=== PATIENT | male | born 1935 | race Two or more races ===

== ENCOUNTER 2017-02-14 06:49 | Day surgery (SDC) | payer OTHER, BC ==
[2017-02-14] VITALS (7 sets, daily range): BP systolic 121–148; BP diastolic 61–72
[~2017-02-14] VITALS: Ht 165.1 cm; Wt 59.0 kg
[~2017-02-14 06:49] MED LIST: CALPHRON667 MG PO; HYTRIN5 MG PO; LIPITOR20 MG PO; LOPRESSOR50 MG PO; NORVASC10 MG PO; NORVASC5 MG PO; PROCRIT3000 UNIT1 SC; ROCALTROL0.5 MCG PO; ZYLOPRIM100 MG PO
[2017-02-14 07:15] LABS: HEMATOCRIT 28.3 % (38.0-50.0); MCHC 33.2 G/DL (30.0-36.0); MCV 93.4 FL (86-99); MEAN PLAT.VOLUME 10.5 uM^3 (9.0-12.4); PLATELET COUNT 176 K/uL (156-360); RBC DIS.WIDTH-CV 12.8 % (11.8-14.6); RBC DIS.WIDTH-SD 43.4 % (39-53); RED BLOOD COUNT 3.03 M/uL (4.00-5.50); WHITE BLOOD COUNT 5.2 K/uL (4.1-10.2)
[2017-02-14 07:42] LABS: ANION GAP 6 MEQ/L (2-14); CHLORIDE 103 MEQ/L (99-109); GFR ESTIMATE (CALCULATED) 10 mL/min/; GLUCOSE 110 mg/dL (70-99); POTASSIUM 4.8 MEQ/L (3.7-5.4); SAMPLE HEMOLYSIS CHECK 0; SAMPLE ICTERIC CHECK 0; SAMPLE LIPEMIA CHECK 0; SODIUM 136 MEQ/L (136-147); UREA NITROGEN (BUN) 58 mg/dL (9-23)
[2017-02-14] MEDS ORDERED: NORCO 5/3251 TABLET PO (10:45)
[2017-02-15 04:16] VITALS: BP 130/65
[2017-02-15 08:10] VITALS: BP 142/68
== END 2017-02-15 10:35 | disposition home or self-care (01) ==
LOC: SDC 06:49 → 2SOUTH 11:46 → 2EASTP 11:46 → 2SOUTH 11:46 → SDC 11:48 → 2EASTP 13:17 → SDC 15:07 → 2EASTP 02-15 10:35
PROVIDERS: Surgery
PROC: 0WHG43Z Insertion of Infusion Device into Peritoneal Cavity, Percutaneous Endoscopic Approach (ICD-10-PCS; principal; 2017-02-14)
DX: I12.0 Hypertensive chronic kidney disease with stage 5 chronic kidney disease or end stage renal disease (principal); E11.22 Type 2 diabetes mellitus with diabetic chronic kidney disease; N18.5 Chronic kidney disease, stage 5; E78.5 Hyperlipidemia, unspecified; N40.0 Benign prostatic hyperplasia without lower urinary tract symptoms; E56.0 Deficiency of vitamin E; N25.81 Secondary hyperparathyroidism of renal origin; M10.9 Gout, unspecified; Z82.49 Family history of ischemic heart disease and other diseases of the circulatory system
CPT/HCPCS: 80048; 85027; C1750; G0378; J0330; J0690; J2405; J3010; S0020